=== PATIENT | male | born 1950 | race Two or more races ===

== ENCOUNTER 2019-12-12 13:12 | Outpatient (CLI) | payer OTHER | END 2019-12-12 13:37 | disposition home or self-care (01) | LOC: NUCLEAR 13:12 | PROVIDERS: ATTEND Internal Medicine Hematology & Oncology | DX: D69.49 Other primary thrombocytopenia (principal); Q89.09 Congenital malformations of spleen; K76.89 Other specified diseases of liver | CPT/HCPCS: 78215; A9541 ==